=== PATIENT | female | born 2000 | race Two or more races ===

== ENCOUNTER 2020-09-29 20:28 | Emergency (ER) | payer OTHER ==
[~2020-09-29] VITALS: Ht 160 cm; Wt 49.9 kg
[~2020-09-29 20:28] MED LIST: TAMIFLU45 MG PO
== END 2020-09-30 00:19 | disposition home or self-care (01) ==
LOC: ER 20:28
DX: R10.2 Pelvic and perineal pain (principal)

== ENCOUNTER 2022-04-25 22:35 | Emergency (ER) | payer OTHER ==
[~2022-04-25] VITALS: Ht 160 cm; Wt 55.3 kg
[2022-04-26] MEDS ORDERED: PEPCID40 MG PO (05:31)
== END 2022-04-26 05:39 ==
LOC: ER 22:35
DX: O21.8 Other vomiting complicating pregnancy (principal); Z3A.12 12 weeks gestation of pregnancy

== ENCOUNTER 2022-05-03 13:37 | Emergency (ER) | payer OTHER ==
[~2022-05-03] VITALS: Ht 160 cm; Wt 55.3 kg
[~2022-05-03 13:37] MED LIST changes: +PEPCID40 MG PO
[2022-05-03] MEDS ORDERED: XYZAL5 MG PO (14:22)
[2022-05-03] MEDS ORDERED: PRENATAL + DHA1 EAC1 PO (14:22)
== END 2022-05-03 18:39 | disposition home or self-care (01) ==
LOC: ER 13:37
DX: O21.1 Hyperemesis gravidarum with metabolic disturbance (principal); Z3A.12 12 weeks gestation of pregnancy

== ENCOUNTER → 2022-06-05 | Emergency (ER) | payer OTHER ==
[~2022-06-05] VITALS: Ht 160 cm; Wt 55.3 kg
[~2022-06-05] MED LIST changes: +CEPHALEXIN250 MG/5 M PO; +ONDANSETRON ODT4 MG PO; +PRENATAL + DHA1 EAC1 PO; +XYZAL5 MG PO
== END | disposition home or self-care (01) ==
LOC: ER 00:04
DX: O26.892 Other specified pregnancy related conditions, second trimester (principal); O21.0 Mild hyperemesis gravidarum; Z3A.18 18 weeks gestation of pregnancy; R30.0 Dysuria

== ENCOUNTER 2022-07-11 01:25 | Emergency (ER) | payer OTHER ==
[~2022-07-11] VITALS: Ht 160 cm; Wt 54.4 kg
[~2022-07-11 01:25] MED LIST changes: -PEPCID AC20 MG; -PRENATAL TABLE1 EAC1
[2022-07-12] MEDS ORDERED: PEPCID AC20 MG (01:10)
[2022-07-12] MEDS ORDERED: PRENATAL TABLE1 EAC1 (01:10)
== END 2022-07-11 04:21 | disposition home or self-care (01) ==
LOC: ER 01:25
DX: O26.892 Other specified pregnancy related conditions, second trimester (principal); Z3A.23 23 weeks gestation of pregnancy; R10.11 Right upper quadrant pain; Z91.013 Allergy to seafood

== ENCOUNTER → 2022-07-11 | Emergency (ER) | payer OTHER ==
[~2022-07-11] MED LIST changes: +PEPCID AC20 MG; +PRENATAL TABLE1 EAC1
== END | disposition home or self-care (01) ==
LOC: ER 18:51
DX: O26.892 Other specified pregnancy related conditions, second trimester (principal); Z3A.23 23 weeks gestation of pregnancy; R10.11 Right upper quadrant pain; Z91.013 Allergy to seafood

== ENCOUNTER 2022-07-12 00:16 | Outpatient (CLI) | payer OTHER ==
[2022-07-12] MEDS ORDERED: PEPCID AC20 MG (01:10)
[2022-07-12] MEDS ORDERED: PRENATAL TABLE1 EAC1 (01:10)
== END 2022-07-12 11:48 | disposition left against medical advice (07) ==
LOC: OBS/DEL 00:16
PROVIDERS: ATTEND Obstetrics & Gynecology
DX: O26.822 Pregnancy related peripheral neuritis, second trimester (principal); Z3A.23 23 weeks gestation of pregnancy; R10.84 Generalized abdominal pain

== ENCOUNTER 2022-08-28 02:06 | Emergency (ER) | payer OTHER ==
[~2022-08-28] VITALS: Ht 160 cm; Wt 62.1 kg
[~2022-08-28 02:06] MED LIST changes: +PEPCID AC20 MG; +PRENATAL TABLE1 EAC1
[2022-08-28] MEDS ORDERED: XYZAL5 MG (02:45)
== END 2022-08-28 08:17 ==
LOC: ER 02:06
DX: O26.893 Other specified pregnancy related conditions, third trimester (principal); Z3A.30 30 weeks gestation of pregnancy; R42 Dizziness and giddiness; D64.9 Anemia, unspecified; Z91.013 Allergy to seafood

== ENCOUNTER 2022-10-04 18:19 | Outpatient (CLI) | payer OTHER ==
[~2022-10-04 18:19] MED LIST changes: +XYZAL5 MG
== END 2022-10-04 18:58 | disposition home or self-care (01) ==
LOC: NST 18:19
PROVIDERS: ATTEND Obstetrics & Gynecology
DX: Z34.83 Encounter for supervision of other normal pregnancy, third trimester (principal)

== ENCOUNTER 2022-10-12 22:52 | Inpatient (IN) | payer OTHER ==
[~2022-10-12] VITALS: Ht 160 cm; Wt 65.3 kg
[2022-10-14] MEDS ORDERED: INTEGRA F CAPS1 EACH PO (09:07)
== END 2022-10-14 09:26 | disposition home or self-care (01) | DRG 833 ==
LOC: OBS/DEL 22:52 → LDR 10-13 01:33
PROVIDERS: ADMIT Obstetrics & Gynecology; ATTEND Obstetrics & Gynecology
PROC: 4A1HXCZ Monitoring of Products of Conception, Cardiac Rate, External Approach (ICD-10-PCS; principal; 2022-10-13)
DX: O60.03 Preterm labor without delivery, third trimester (principal); Z3A.36 36 weeks gestation of pregnancy; Z20.822 Contact with and (suspected) exposure to COVID-19

== ENCOUNTER → 2022-10-17 | Outpatient (CLI) | payer OTHER ==
[~2022-10-17] MED LIST changes: +INTEGRA F CAPS1 EACH PO
== END | disposition home or self-care (01) ==
LOC: NST 21:23
PROVIDERS: ATTEND Obstetrics & Gynecology
DX: Z34.83 Encounter for supervision of other normal pregnancy, third trimester (principal)

== ENCOUNTER 2022-10-23 15:38 | Outpatient (CLI) | payer OTHER ==
[2022-10-23] MEDS ORDERED: PEPCID AC10 MG PO (21:44)
== END 2022-10-23 18:16 | disposition home or self-care (01) ==
LOC: NST 15:38
PROVIDERS: ATTEND Obstetrics & Gynecology Gynecology
DX: Z34.83 Encounter for supervision of other normal pregnancy, third trimester (principal)

== ENCOUNTER 2022-10-23 18:20 | Inpatient (IN) | payer OTHER ==
[~2022-10-23] VITALS: Ht 160 cm; Wt 2.7 kg
[2022-10-23] MEDS ORDERED: PEPCID AC10 MG PO (21:44)
== END 2022-10-28 13:57 | disposition home or self-care (01) | DRG 788 ==
LOC: OBS/DEL 18:20 → LDR 10-24 09:42 → OB/GYN 10-24 09:42 → O/R 10-25 17:40 → OB/GYN 10-25 20:21
PROVIDERS: ADMIT Obstetrics & Gynecology Gynecology; ATTEND Obstetrics & Gynecology Gynecology
PROC: 4A1HXCZ Monitoring of Products of Conception, Cardiac Rate, External Approach (ICD-10-PCS; 2022-10-24)
PROC: 10D00Z1 Extraction of Products of Conception, Low, Open Approach (ICD-10-PCS; principal; 2022-10-25 14:00)
DX: O62.0 Primary inadequate contractions (principal); O62.1 Secondary uterine inertia; Z3A.38 38 weeks gestation of pregnancy; Z37.0 Single live birth; Z20.822 Contact with and (suspected) exposure to COVID-19

== ENCOUNTER 2024-06-01 19:56 | Outpatient (CLI) | payer OTHER ==
[~2024-06-01 19:56] MED LIST changes: +MACROBID 100 M100 MG PO; +PEPCID AC10 MG PO
[2024-06-01 21:09] LABS: HEMATOCRIT 27.9 % (36.0-45.00); HEMOGLOBIN 9.3 g/dL (12.0-15.00); MEAN CELL VOLUME 80.2 fL (80.00-100.00); MEAN CORPUSCULAR HEMOGLOBIN 26.8 pg (27.00-32.0); MEAN CORPUSCULAR HGB CONC 33.4 g/dl (32.0-36.0); PLATELET COUNT 250 K/uL (150-450); RED BLOOD COUNT 3.48 M/uL (4.00-6.00); RED CELL DISTRIBUTION WIDTH 13.9 % (11.5-14.5)
[2024-06-01 21:32] VITALS: BP 101/62
[2024-06-01 21:39] LABS: ALBUMIN 2.8 gm/dL (3.4-5.0); BILIRUBIN TOTAL 0.67 mg/dL (0.3-1.2); CALCIUM 8.5 mg/dL (8.5-10.1); CREATININE SERUM 0.67 mg/dL (0.55-1.02); GFR 108.13; GLOBULINA 3.5 G/DL (2.4-3.5); POTASSIUM 3.98 mEq/L (3.5-5.1); TOTAL PROTEIN 6.3 gm/dL (6.4-8.2)
== END 2024-06-02 07:16 | disposition left against medical advice (07) ==
LOC: OBS/DEL 19:56
PROVIDERS: Specialist; ATTEND Obstetrics & Gynecology Maternal & Fetal Medicine
DX: O26.892 Other specified pregnancy related conditions, second trimester (principal); Z3A.27 27 weeks gestation of pregnancy

== ENCOUNTER 2024-07-23 00:42 | Inpatient (IN) | payer OTHER ==
[~2024-07-23] VITALS: Ht 160 cm; Wt 62.1 kg
[2024-07-23] VITALS (8 sets, daily range): BP systolic 90–122; BP diastolic 52–75; O2SAT 99
[2024-07-23] MEDS ORDERED: RINGERS SOLUTION,LACTATED 1,000 ML IV SCH (01:00)
[2024-07-23] MEDS ORDERED: MAGNESIUM SULFATE IN WATER 500 ML IV SCH (01:00)
[2024-07-23] MEDS ORDERED: MAGNESIUM SULFATE IN WATER 100 ML IV SCH (01:00)
[2024-07-23] MEDS ORDERED: BETAMETHASONE ACETATE,SOD PHOS 30 MG/5 ML ML IM SCH (01:30)
[2024-07-23 02:47] LABS: HEMATOCRIT 26.6 % (36.0-45.00); MEAN CORPUSCULAR HGB CONC 32.5 g/dl (32.0-36.0); PLATELET COUNT 218 K/uL (150-450); RED BLOOD COUNT 3.64 M/uL (4.00-6.00)
[2024-07-23 02:50] LABS: INR 0.96; PARTIAL THROMBOPLASTIN TIME 25.6 SECONDS (22.0-34.0); PROTHROMBIN TIME 10.5 SECONDS (9.0-11.5)
[2024-07-23 02:55] LABS: ALBUMIN 2.7 gm/dL (3.4-5.0); BILIRUBIN TOTAL 0.9 mg/dL (0.3-1.2); CALCIUM 8.4 mg/dL (8.5-10.1); CREATININE SERUM 0.43 mg/dL (0.55-1.02); GFR 180.4; GLOBULINA 3.7 G/DL (2.4-3.5); POTASSIUM 3.69 mEq/L (3.5-5.1); TOTAL PROTEIN 6.4 gm/dL (6.4-8.2)
[2024-07-23 03:01] LABS: HEMOGLOBIN 8.7 g/dL (12.0-15.00); MEAN CORPUSCULAR HEMOGLOBIN 23.9 pg (27.00-32.0)
[2024-07-23] MEDS ORDERED: PRENATAL TABLE1 EAC4 (03:07)
[2024-07-23] MEDS ORDERED: PEPCID AC20 MG PO (03:08)
[2024-07-23] MEDS ORDERED: SOD FERRIC GLUC COMPLX/SUCROSE 125 MG in 0.9 % SODIUM CHLORIDE 100 ML IV SCH (09:00)
[2024-07-23] MEDS ORDERED: FAMOTIDINE/PF 20 MG in 0.9 % SODIUM CHLORIDE 8 ML IV PUSH SCH (14:24)
[2024-07-23] MEDS ORDERED: FAMOTIDINE/PF 20 MG/2 ML VIAL IV SCH (14:30)
[2024-07-23] MEDS ORDERED: IRON/V.C/V.B12/FOLIC A/VIT. E 1 CAPL CAPLET PO SCH (16:30)
[2024-07-23] MEDS ORDERED: NIFEDIPINE 30 MG TAB.SA.OSM PO SCH (21:00)
[2024-07-24 00:53] VITALS: BP 97/60
[2024-07-24] MEDS ORDERED: SOD FERRIC GLUC COMPLX/SUCROSE 62.5 MG/5 ML AMPUL IV ONE (08:15)
[2024-07-24 08:43] VITALS: BP 116/74
[2024-07-24 16:00] VITALS: BP 95/55
[2024-07-24] MEDS ORDERED: ACETAMINOPHEN 500 MG GEL..CAP PO PRN (19:30)
[2024-07-25] VITALS: BP 124/75
[2024-07-25 08:34] VITALS: BP 109/52
[2024-07-25 09:23] LABS: HEMATOCRIT 26.2 % (36.0-45.00); MEAN CELL VOLUME 74.3 fL (80.00-100.00); MEAN CORPUSCULAR HGB CONC 30.5 g/dl (32.0-36.0); PLATELET COUNT 243 K/uL (150-450); RED BLOOD COUNT 3.53 M/uL (4.00-6.00); RED CELL DISTRIBUTION WIDTH 16.1 % (11.5-14.5)
[2024-07-25 09:25] LABS: MEAN CORPUSCULAR HEMOGLOBIN 22.6 pg (27.00-32.0)
[2024-07-25 17:43] VITALS: BP 100/75
[2024-07-26 01:00] VITALS: BP 100/63
[2024-07-26 07:35] VITALS: BP 97/57
[2024-07-26 13:07] VITALS: BP 105/69
[2024-07-26 14:30] VITALS: BP 119/55
[2024-07-27 01:00] VITALS: BP 115/75
[2024-07-27 01:18] LABS: HEMATOCRIT 32.8 % (36.0-45.00); HEMOGLOBIN 10.4 g/dL (12.0-15.00); MEAN CELL VOLUME 77.1 fL (80.00-100.00); MEAN CORPUSCULAR HEMOGLOBIN 24.4 pg (27.00-32.0); MEAN CORPUSCULAR HGB CONC 31.6 g/dl (32.0-36.0); PLATELET COUNT 241 K/uL (150-450); RED BLOOD COUNT 4.26 M/uL (4.00-6.00); RED CELL DISTRIBUTION WIDTH 17.4 % (11.5-14.5)
[2024-07-27 11:43] VITALS: BP 109/85
== END 2024-07-27 11:45 | disposition home or self-care (01) | DRG 833 ==
LOC: LDR 00:42 → OB/GYN 00:42
PROVIDERS: Obstetrics & Gynecology Gynecology; ADMIT Obstetrics & Gynecology Maternal & Fetal Medicine; ATTEND Obstetrics & Gynecology Maternal & Fetal Medicine
PROC: 4A1HXCZ Monitoring of Products of Conception, Cardiac Rate, External Approach (ICD-10-PCS; principal; 2024-07-23)
PROC: 30233N1 Transfusion of Nonautologous Red Blood Cells into Peripheral Vein, Percutaneous Approach (ICD-10-PCS; 2024-07-26)
DX: O47.03 False labor before 37 completed weeks of gestation, third trimester (principal); O99.013 Anemia complicating pregnancy, third trimester; D64.9 Anemia, unspecified; Z3A.35 35 weeks gestation of pregnancy; Z20.822 Contact with and (suspected) exposure to COVID-19

== ENCOUNTER 2024-07-28 22:42 | Outpatient (CLI) | payer OTHER ==
[~2024-07-28] VITALS: Ht 160 cm; Wt 62.6 kg
[2024-07-28 22:13] VITALS: BP 116/73
[~2024-07-28 22:42] MED LIST changes: +PEPCID AC20 MG PO; +PRENATAL TABLE1 EAC4
[2024-07-28 23:30] VITALS: BP 95/55
[2024-07-29 03:04] VITALS: BP 109/61
[2024-07-29 06:37] VITALS: BP 94/54; O2SAT 98
[2024-07-29 09:29] VITALS: BP 97/58
== END 2024-07-29 09:40 | disposition home or self-care (01) ==
LOC: OBS/DEL 22:42
PROVIDERS: ATTEND Obstetrics & Gynecology
DX: O26.893 Other specified pregnancy related conditions, third trimester (principal); Z3A.35 35 weeks gestation of pregnancy

== ENCOUNTER 2024-08-03 22:10 | Inpatient (IN) | payer OTHER ==
[~2024-08-03] VITALS: Ht 160 cm; Wt 86.2 kg
[2024-08-03 21:12] VITALS: BP 105/68
[2024-08-03] MEDS ORDERED: ACETAMINOPHEN 325 MG TABLET PO PRN (22:45)
[2024-08-03 23:08] VITALS: BP 91/50
[2024-08-04] VITALS (7 sets, daily range): BP systolic 97–120; BP diastolic 59–72; O2SAT 97–98
[2024-08-04] MEDS ORDERED: RINGERS SOLUTION,LACTATED 1,000 ML IV SCH (04:15)
[2024-08-04 05:13] LABS: HEMATOCRIT 32.3 % (36.0-45.00); HEMOGLOBIN 10.5 g/dL (12.0-15.00); MEAN CELL VOLUME 79.1 fL (80.00-100.00); MEAN CORPUSCULAR HEMOGLOBIN 25.7 pg (27.00-32.0); MEAN CORPUSCULAR HGB CONC 32.5 g/dl (32.0-36.0); PLATELET COUNT 166 K/uL (150-450); RED BLOOD COUNT 4.09 M/uL (4.00-6.00)
[2024-08-04 05:27] LABS: ALBUMIN 2.7 gm/dL (3.4-5.0); BILIRUBIN TOTAL 0.82 mg/dL (0.3-1.2); CALCIUM 8.6 mg/dL (8.5-10.1); CREATININE SERUM 0.42 mg/dL (0.55-1.02); GFR 185.36; GLOBULINA 3.3 G/DL (2.4-3.5); POTASSIUM 4.07 mEq/L (3.5-5.1)
[2024-08-04 05:34] LABS: RED CELL DISTRIBUTION WIDTH 21.8 % (11.5-14.5)
[2024-08-04] MEDS ORDERED: ACETAMINOPHEN 325 MG TABLET PO PRN (07:30)
[2024-08-04 08:14] LABS: PH,URINE 6.5 (5.0-8.0); URINE APPEARANCE Turbid; URINE BILIRRUBIN Negative (NEGATIVE); URINE BLOOD Small; URINE COLOR Yellow; URINE GLUCOSE Negative (NEGATIVE); URINE KETONE Negative (NEGATIVE); URINE LEUKOCYTE Large; URINE NITRATE Negative; URINE PROTEIN 30 (NEGATIVE); URINE UROBILINOGEN 0.2 E.U./dl
[2024-08-04 08:38] LABS: URINE CAST 3.56 uL (0.0-1.40); URINE WBC 2703.5 uL (0.0-23.2)
[2024-08-04 08:58] LABS: URINE BACTERIA > 9821.5 uL (0.0-1933); URINE EPITHELIAL CELLS > 201.7 uL (0.0-38.8)
[2024-08-04 09:06] LABS: URINE TRICHOMONAS FEW
[2024-08-04] MEDS ORDERED: NITROFURANTOIN MONOHYD/M-CRYST 100 MG CAPSULE PO SCH (10:39)
[2024-08-04] MEDS ORDERED: ONDANSETRON HCL 2 MG/ML VIAL IV NR (12:30)
[2024-08-04] MEDS ORDERED: hydrOXYzine PAMOATE 50 MG CAPSULE PO SCH (17:00)
[2024-08-04] MEDS ORDERED: ONDANSETRON 4 MG TAB.RAPDIS PO SCH (17:00)
[2024-08-05 03:11] VITALS: BP 102/57; O2SAT 99
[2024-08-05 06:09] VITALS: BP 99/58; O2SAT 98
[2024-08-05] MEDS ORDERED: ONDANSETRON 4 MG TAB.RAPDIS PO SCH (09:00)
[2024-08-05 12:42] VITALS: BP 110/75; O2SAT 98
[2024-08-05 15:37] VITALS: BP 97/56
[2024-08-05 20:40] VITALS: BP 104/63
[2024-08-05] MEDS ORDERED: CLINDAMYCIN PHOSPHATE 150 MG/ML (900mg) IV SCH (21:45)
[2024-08-05] MEDS ORDERED: CITRIC ACID/SODIUM CITRATE 30 ML BLIST.PACK PO SCH (21:45)
[2024-08-05 23:23] VITALS: BP 113/71
[2024-08-06 04:46] VITALS: BP 107/66
[2024-08-06 06:24] VITALS: BP 99/665; O2SAT 98
[2024-08-06] MEDS ORDERED: ERYTHROMYCIN BASE OPHT 1GM EACH TUBE OP NR (08:15)
[2024-08-06] MEDS ORDERED: OXYTOCIN 10 UNITS/ML VIAL IV ONE (08:15)
[2024-08-06] MEDS ORDERED: CHLORHEXIDINE GLUCONATE 120 ML BOTTLE TOP NR (08:15)
[2024-08-06] MEDS ORDERED: IBUprofen 400 MG TABLET PO PRN (10:30)
[2024-08-06] MEDS ORDERED: MEPERIDINE HCL/PF 50 MG/ML VIAL IM PRN (10:30)
[2024-08-06] MEDS ORDERED: OXYTOCIN 1,000 ML IV SCH (10:30)
[2024-08-06] MEDS ORDERED: MORPHINE SULFATE 4 MG/ML VIAL IV ONE ×2 (11:05→11:35)
[2024-08-06 14:33] VITALS: BP 120/75; O2SAT 96
[2024-08-06 16:15] VITALS: BP 114/74
[2024-08-06] MEDS ORDERED: NITROFURANTOIN MONOHYD/M-CRYST 100 MG CAPSULE PO SCH (17:00)
[2024-08-06] MEDS ORDERED: OxyCODONE HCL/APAP UD (PERCOCET) PO PRN (19:45)
[2024-08-06 20:06] VITALS: BP 126/82
[2024-08-07 01:13] VITALS: BP 100/66
[2024-08-07 08:00] VITALS: BP 117/78
[2024-08-07] MEDS ORDERED: OxyCODONE HCL/APAP UD (PERCOCET) PO PRN (08:00)
[2024-08-07 09:37] LABS: HEMATOCRIT 35.7 % (36.0-45.00); HEMOGLOBIN 11.5 g/dL (12.0-15.00); MEAN CELL VOLUME 78.5 fL (80.00-100.00); MEAN CORPUSCULAR HEMOGLOBIN 25.3 pg (27.00-32.0); MEAN CORPUSCULAR HGB CONC 32.2 g/dl (32.0-36.0); PLATELET COUNT 232 K/uL (150-450); RED BLOOD COUNT 4.55 M/uL (4.00-6.00); RED CELL DISTRIBUTION WIDTH 23.7 % (11.5-14.5)
[2024-08-07] MEDS ORDERED: DOCUSATE SODIUM 100MG CAP PO NR (11:42)
[2024-08-07 16:00] VITALS: BP 111/72
[2024-08-07] MEDS ORDERED: DOCUSATE SODIUM 100MG CAP PO SCH (17:00)
[2024-08-08 01:41] VITALS: BP 115/70
[2024-08-08 06:28] VITALS: BP 118/73
[2024-08-08 08:00] VITALS: BP 125/69
[2024-08-08 16:20] VITALS: BP 114/75
[2024-08-08] MEDS ORDERED: OxyCODONE HCL/APAP UD (PERCOCET) PO PRN (20:15)
[2024-08-09 00:37] VITALS: BP 106/66
[2024-08-09 08:00] VITALS: BP 109/71
== END 2024-08-09 11:36 | disposition home or self-care (01) | DRG 783 ==
LOC: OBS/DEL 22:10 → LDR 08-04 04:17 → O/R 08-06 11:21 → OB/GYN 08-06 11:57
PROVIDERS: ADMIT Obstetrics & Gynecology; ATTEND Obstetrics & Gynecology
PROC: 4A1HXCZ Monitoring of Products of Conception, Cardiac Rate, External Approach (ICD-10-PCS; 2024-08-04)
PROC: BY4FZZZ Ultrasonography of Third Trimester, Single Fetus (ICD-10-PCS; 2024-08-04)
PROC: BU4CZZZ Ultrasonography of Uterus and Ovaries (ICD-10-PCS; 2024-08-04)
PROC: 10D00Z1 Extraction of Products of Conception, Low, Open Approach (ICD-10-PCS; principal; 2024-08-06)
PROC: 0UB70ZZ Excision of Bilateral Fallopian Tubes, Open Approach (ICD-10-PCS; 2024-08-06)
DX: O62.1 Secondary uterine inertia (principal); O60.14X0 Preterm labor third trimester with preterm delivery third trimester, not applicable or unspecified; O26.843 Uterine size-date discrepancy, third trimester; O34.211 Maternal care for low transverse scar from previous cesarean delivery; O36.8130 Decreased fetal movements, third trimester, not applicable or unspecified; Z30.2 Encounter for sterilization; Z3A.36 36 weeks gestation of pregnancy; Z37.0 Single live birth; Z20.822 Contact with and (suspected) exposure to COVID-19